=== PATIENT | female | born 1990 | race Caucasian/White ===

== ENCOUNTER 2018-10-07 20:30 | Emergency (ER) | payer OTHER ==
[~2018-10-07] VITALS: Ht 162.6 cm; Wt 62.6 kg
[2018-10-07 21:30] LABS: BASOPHILS 0.7 % (0.0-2.0); EOSINOPHILS 0.5 % (0.0-3.0); HEMOGLOBIN 13.9 gm/dL (12.0-15.0); LYMPHOCYTES 25.1 % (24.0-44.0); MCH 31.9 pg (26.0-34.0); MCHC 33.8 g/dL (28.0-37.0); MCV 94.4 fL (80.0-100.0); MONOCYTES 9.1 % (1.0-8.0); PLATELET COUNT 210 thou/uL (150-400); POLYS 64.6 % (36.0-66.0); RBC 4.34 mil/uL (4.20-5.00); RDW 12.4 % (10.5-14.5); WBC 7.8 thou/uL (4.0-11.0)
[2018-10-07 21:31] LABS: URINE BILIRUBIN NEGATIVE (Negative); URINE BLOOD 3+ (Negative); URINE CLARITY SL CLOUDY; URINE COLOR YELLOW; URINE GLUCOSE-RANDOM* NEGATIVE (Negative); URINE KETONES 1+ (Negative); URINE NITRITE-REFLEX NEGATIVE (Negative); URINE PROTEIN (DIPSTICK) NEGATIVE (Negative); URINE SPECIFIC GRAVITY >= 1.030 (1.005-1.035); URINE UROBILINOGEN 0.2 E.U./dl (0.2-1.0)
[2018-10-07 21:33] LABS: URINE LEUKOCYTES-REFLEX 1+ (Negative)
[2018-10-07 21:38] LABS: CALCIUM 10.8 mg/dL (8.5-10.1); CREATININE 0.7 mg/dL (0.6-1.0); POTASSIUM 3.6 mmol/L (3.5-5.1)
[2018-10-07 21:41] LABS: CALCIUM OXALATE 0-3 Few /LPF (None Seen); CASTS None Seen /LPF (None Seen); MUCUS None Seen strn/LPF (None Seen); SQUAMOUS 4-10 Moderate /LPF (0-3); URINE RBC 3-10 Few /HPF (0-2); URINE WBC-REFLEX 6-15 Few /HPF (0-5)
[2018-10-07 21:42] LABS: BACTERIA-REFLEX 1-9 Few /HPF (None Seen); CRYSTALS None Seen /LPF (None Seen)
[2018-10-07 21:44] LABS: ALBUMIN 4.4 g/dL (3.4-5.0); TOTAL BILIRUBIN 0.6 mg/dL (<0.1-1.0); TOTAL PROTEIN 8.1 g/dL (6.4-8.2)
[2018-10-07] MEDS ORDERED: BACLOFEN 10MG T10 MG PO (21:56)
[2018-10-07] MEDS ORDERED: PROMS25 WY RECTAL (22:54)
[2018-10-07] MEDS ORDERED: ONDANSETRON ODT8 MG PO (22:54)
[2018-10-07] MEDS ORDERED: PRILOSEC 20 MG20 MG PO (22:54)
[2018-10-07] MEDS ORDERED: KEFLEX500 M1 PO (22:54)
[2018-10-07 23:38] VITALS: BP 112/74
== END 2018-10-07 23:39 | disposition home or self-care (01) ==
LOC: ER 20:30
PROVIDERS: Emergency Medicine
DX: N39.0 Urinary tract infection, site not specified (principal); G89.29 Other chronic pain; R11.2 Nausea with vomiting, unspecified; G43.909 Migraine, unspecified, not intractable, without status migrainosus; Z88.1 Allergy status to other antibiotic agents; Z88.8 Allergy status to other drugs, medicaments and biological substances